=== PATIENT | female | born 1975 | race Two or more races ===

== ENCOUNTER 2025-06-02 13:25 | Outpatient (CLI) | payer OTHER ==
--- NOTE | 2025-06-02 15:42 | RADIOLOGY REPORT ---
CLINICAL INFORMATION: Pain in left shoulder. TECHNIQUE: Multisequence multiplanar MRI images of the left shoulder were obtained without contrast. COMPARISON: None FINDINGS: Acromioclavicular joint: There is [id number] acromioclavicular hypertrophy and [id number] edema. There is type 1 acromion. Small amount of fluid in the subacromial/subdeltoid bursa. Rotator cuff tendons: Mild tendinosis of the distal supraspinatus and infraspinatus tendons with mild bursal surface fraying just proximal to the insertions. Subscapularis and teres minor tendons are intact. Biceps tendon: No significant tendinosis. No evidence of attrition or tear. Labrum: Fraying and possible small tear at the anterior labrum. Bones: No fracture or focal marrow contusion. Muscles: Normal muscle bulk. No atrophy. Other: No other significant findings. IMPRESSION: 1. Rotator cuff tendinosis with mild bursal surface fraying in the distal supraspinatus and infraspinatus tendons. No full-thickness or significant partial-thickness rotator cuff tear. 2. Mild acromioclavicular hypertrophy with mild subacromial / subdeltoid bursitis. 3. Fraying and possible small tear at the anterior labrum. Correlate with clinical findings. If clinically indicated, MR arthrogram could be obtained.
== END 2025-06-02 23:59 | disposition home or self-care (01) ==
LOC: MRI02 13:25
PROVIDERS: ATTEND Student in an Organized Health Care Education/Training Program
DX: M19.012 Primary osteoarthritis, left shoulder (principal); M25.512 Pain in left shoulder; M75.52 Bursitis of left shoulder; M62.830 Muscle spasm of back; M89.312 Hypertrophy of bone, left shoulder
CPT/HCPCS: 73221